=== PATIENT | female | born 1990 | race Caucasian/White ===

== ENCOUNTER → 2020-10-23 02:55 | Outpatient (CLI) | payer OTHER, SELFPAY ==
[2020-10-23 20:12] LABS: SARS-CoV-2 RNA PCR Negative
== END ==
PROVIDERS: Visit Provider Obstetrics & Gynecology
DX: Z01.812 Encounter for preprocedural laboratory examination (principal); Z20.822 Contact with and (suspected) exposure to COVID-19
CPT/HCPCS: C9803; U0003; U0005

== ENCOUNTER 2020-10-26 01:38 | Day surgery (SDC) | payer OTHER, SELFPAY ==
[2020-10-21 10:50] VITALS: BMI 22.9
[2020-10-26] MEDS: ACETAMINOPHEN 500 MG TABLET 1000 MG PO (10:16)
[2020-10-26] MEDS: LACTATED RINGERS 1,000 ML 30 ML IV CONT ×2 (10:22→13:06)
[2020-10-26 10:30] VITALS: BP 112/69; PULSE 94; RESP 18; TEMP 37.1; O2SAT 100
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
--- NOTE | 2020-10-26 12:27 | WPDHPUPDATE1 ---
History and Physical Update Update Date/Time: 10/26/20 12:27 History and Physical has been reviewed, including an updated exam of the patient. There are NO changes in the patient's condition. Risks, benefits, and alternatives have been discussed and questions answered. Patient agrees to proceed with procedure.
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
--- NOTE | 2020-10-26 13:02 | W.PM.PROC2 ---
Procedure Note - Detailed Date of Procedure 10/26/20 Pre-op Diagnosis sterilization, abn uterine bleeding Post-op Diagnosis same Procedure Performed hysteroscopy with endometrial ablation Surgeon Miroslava You MD Anesthesia MAC Indications abnormal uterine bleeding s/p hysteroscopy D&C which did not help. Pathology at that time was benign. Decided to proceed with ablation. has vasectomy Findings normal fluffy white endometrium. Description of Procedure The patient was taken to the operating room where MAC was found to be adequate. She was prepared and draped in dorsal lithotomy in [facility]. It was noted just prior starting the case the patient was sedated but eyelids were not fully closed. Notified anesthesia to watch for this if patient not blinking. Speculum was used to visualize the cervix and a single toothed tenaculum placed on anterior lip of the cervix. 10cc of 1% lidocaine with epinephrine used to perform a pericervical block. Uterus sounded to 9 cm. Cervix length 4cm and cavity length 5cm. Hysteroscope inserted and 0.9% sterile saline used for distension. There were no lesions and bilateral cornua were visible. The timo was then prepped and inserted and cavity assessment passed. The ablation proceeded without complication. The timo removed and hysteroscope reinserted. Good ablation coverage noted. The hysteroscpe removed and tenaculum removed. Left tenaculum site oozy so silver nitrate used to hemostasis. There was no active bleeding at the end of the case. All instruments were removed and the patient was taken to recovery in stable condition. All instruments, needles and gauze were accounted for at the end of the procedure. Estimated Blood Loss 5 Drains No Packing No Pathology none sent Complications No immediate complications Condition stable Disposition PACU
[2020-10-26 13:06] VITALS: BP 89/49; PULSE 75; RESP 12; O2SAT 96
[2020-10-26] MEDS: KETOROLAC 30 MG/ML VIAL (*BKC) IV PUSH (13:20)
[2020-10-26 13:30] VITALS: BP 104/60; PULSE 72; RESP 12; O2SAT 97
[2020-10-26 14:00] VITALS: BP 117/61; PULSE 66; RESP 12
== END 2020-10-26 14:19 | disposition home or self-care (01) ==
PROVIDERS: Visit Provider Obstetrics & Gynecology
PROC: 0U5B8ZZ Destruction of Endometrium, Via Natural or Artificial Opening Endoscopic (ICD-10-PCS; CPT 58563; principal; 2020-10-26 12:00)
DX: Z30.2 Encounter for sterilization (principal); N93.9 Abnormal uterine and vaginal bleeding, unspecified
CPT/HCPCS: 58563; A9270; J1100; J1885; J2250; J2405; J2704; J3010; J7030; J7120